=== PATIENT | female | born 1995 ===

== ENCOUNTER 2024-04-08 21:08 | Inpatient (IN) | payer MEDICAID, OTHER ==
[~2024-04-08] VITALS: Ht 66 cm; Wt 87.5 kg
[2024-04-08 21:42] LABS: COVID AG,FIA SOURCE NASAL SWAB
[2024-04-08 21:51] LABS: BASOPHILS % (AUTO) 0.2 % (0.0-2.0); EOSINOPHILS % (AUTO) 0.3 % (1.0-6.0); HEMATOCRIT 42.7 % (36-46); HEMOGLOBIN 14.1 g/dL (12.0-16.0); LYMPHOCYTES # (AUTO) 1.4 K/uL (1.0-4.8); MEAN CORPUSCULAR HEMOGLOBIN 32.4 pg (26.0-34.0); MEAN CORPUSCULAR HGB CONC 33.1 G/dL (31.0-37.0); MEAN CORPUSCULAR VOLUME 98 fL (80-100); MONOCYTES # (AUTO) 0.6 K/uL (0.1-1.0); MONOCYTES % (AUTO) 5.3 % (2.0-9.0); NEUTROPHILS % (AUTO) 81.2 % (40.0-70.0); PLATELET COUNT (AUTO) 276 K/uL (150-450); RED BLOOD CELL COUNT(AUTO) 4.36 MIL/uL (4.00-5.20); RED CELL DISTRIBUTION WIDTH 15.3 % (11.5-14.5); WHITE BLOOD COUNT (AUTO) 11.1 K/uL (4.5-11.0)
[2024-04-08 21:55] LABS: ALCOHOL, BLOOD (SERUM) 224 mg/dL (0-10); ANION GAP 16 mmol/L (8-16); CALCIUM, TOTAL 8.6 mg/dL (8.8-10.5); CARBON DIOXIDE 23 mmol/L (22-29); CHLORIDE 105 mmol/L (98-107); CREATININE 0.76 mg/dL (0.60-1.30); GLOMERULAR FILTR. RATE CALC > 60 mL/min (>60); GLUCOSE,RANDOM 114 mg/dL (70-110); POTASSIUM 3.1 mmol/L (3.5-5.1); SODIUM SERUM 144 mmol/L (136-145); UREA NITROGEN, BLOOD 4 mg/dL (7-18)
[2024-04-08 22:01] LABS: SARS-COV2 (COVID) ANTIGEN,FIA Negative (Negative)
[2024-04-08 22:50] LABS: PH,URINE DRUG SCREEN 6.5 (5.0-8.0)
[2024-04-08 22:57] LABS: ALCOHOL, URINE DRUG SCREEN POSITIVE (NEGATIVE); AMPHET/METH SCREEN,URINE NEGATIVE (NEGATIVE); BARBITURATE SCREEN, URINE NEGATIVE (NEGATIVE); BENZODIAZEPINES SCREEN,URINE NEGATIVE (NEGATIVE); CANNABINOID SCREEN,URINE POSITIVE (NEGATIVE); COCAINE SCREEN,URINE NEGATIVE (NEGATIVE); METHADONE SCREEN, URINE NEGATIVE (NEGATIVE); OPIATE SCREEN,URINE NEGATIVE (NEGATIVE); PHENCYCLIDINE SCREEN,URINE NEGATIVE (NEGATIVE)
[2024-04-09 01:30] VITALS: O2SAT 99
[2024-04-09] MEDS: ACETAMINOPHEN 325 MG TABLET PO ONE (01:43)
[2024-04-09] MEDS: POTASSIUM CHLORIDE 20 MEQ ER TABLET PO ONE (02:14)
[2024-04-09] MEDS ORDERED: LORazepam 2 MG TABLET PO PRN ×2 (03:15→09:45)
[2024-04-09] MEDS ORDERED: ZOLPIDEM TARTRATE 10 MG TABLET PO PRN (03:15)
[2024-04-09] MEDS ORDERED: HALOPERIDOL 5 MG TABLET PO PRN (03:15)
[2024-04-09 05:27] VITALS: BP 130/90; PULSE 96; RESP 18; TEMP 98.3
[2024-04-09 08:08] VITALS: RESP 16
[2024-04-09] MEDS ORDERED: PROMETHAZINE HCL 25 MG TABLET PO PRN (09:30)
[2024-04-09] MEDS ORDERED: MAGNESIUM HYDROXIDE SUSPENSION 30 ML UDCUP PO PRN ×2 (09:30→09:45)
[2024-04-09] MEDS ORDERED: ACETAMINOPHEN 325 MG TABLET PO PRN ×2 (09:30→09:45)
[2024-04-09] MEDS ORDERED: LOPERAMIDE HCL 2 MG CAPSULE PO PRN ×2 (09:30→09:45)
[2024-04-09] MEDS ORDERED: HydrOXYzine PAMOATE 50 MG CAPSULE PO PRN (09:30)
[2024-04-09] MEDS ORDERED: GuaiFENesin/D-METHORPHAN [SUGAR-FREE] 200-20MG/10 ML SYRUP UDCUP PO PRN (09:30)
[2024-04-09] MEDS ORDERED: TUBERCULIN, PURIFIED PROTEIN DERIVATIVE 5 TU/0.1 ML SYRINGE ID ONE (09:30)
[2024-04-09] MEDS ORDERED: OLANZapine 5 MG RAPDIS TABLET PO PRN (09:30)
[2024-04-09] MEDS ORDERED: MAG HYDROX/ALUMINUM HYD/SIMETH ES 30 ML SUSPENSION UDCUP PO PRN ×2 (09:30→09:45)
[2024-04-09] MEDS ORDERED: OMEPRAZOLE 20 MG CAPSULE PO PRN (09:45)
[2024-04-09] MEDS ORDERED: BENZOCAINE/MENTHOL LOZENGE PO PRN (09:45)
[2024-04-09] MEDS ORDERED: PETROLATUM,WHITE 28 GM JELLY TP PRN (09:45)
[2024-04-09] MEDS ORDERED: ONDANSETRON 4 MG TABLET PO PRN (09:45)
[2024-04-09] MEDS ORDERED: BACITRACIN 28 GM OINTMENT TP PRN (09:45)
[2024-04-09] MEDS ORDERED: DOCUSATE SODIUM 100 MG CAPSULE PO PRN (09:45)
[2024-04-09] MEDS ORDERED: IBUPROFEN 600 MG TABLET PO PRN (09:45)
[2024-04-09] MEDS ORDERED: ALBUTEROL SULFATE HFA 90 MCG/PUFF 8 GM INHALER IH PRN (09:45)
[2024-04-09] MEDS ORDERED: CloNIDine HCL 0.1 MG TABLET PO PRN (09:45)
[2024-04-09 10:11] LABS: FREE T4 (FREE THYROXINE) 1.21 ng/dL (0.76-1.46); THYROID STIMULATING HORMONE 1.49 uIU/mL (0.36-3.74)
[2024-04-09 11:33] VITALS: BP 133/85; PULSE 94; RESP 16; TEMP 97.2; O2SAT 97
[2024-04-09] MEDS ORDERED: FLUO-418 PO (16:06)
[2024-04-09] MEDS ORDERED: MELA5TAB40 PO (16:06)
[2024-04-09] MEDS ORDERED: NALT50TA33 PO (16:06)
[2024-04-09] MEDS ORDERED: OMEG100033 PO (16:06)
[2024-04-09] MEDS: THIAMINE 100 MG TABLET PO SCH (16:11)
[2024-04-09 17:58] VITALS: BP 117/81; PULSE 96; RESP 16; TEMP 97.4; O2SAT 96
[2024-04-09] MEDS: MELATONIN 5 MG TABLET PO SCH (20:56)
[2024-04-09] MEDS ORDERED: OLANZapine 5 MG RAPDIS TABLET PO SCH (21:00)
[2024-04-09 22:00] VITALS: BP 148/85; PULSE 84; RESP 18; TEMP 97.6; O2SAT 98
[2024-04-10 06:37] VITALS: BP 136/99; PULSE 87; RESP 18; TEMP 97.6; O2SAT 99
[2024-04-10 06:43] VITALS: BP 136/84; PULSE 87; RESP 18; TEMP 97.3; O2SAT 99
[2024-04-10] MEDS ORDERED: LORazepam 2 MG TABLET PO PRN (07:00)
[2024-04-10 08:17] VITALS: BP 142/87; PULSE 85; RESP 16; TEMP 97.8; O2SAT 96
[2024-04-10] MEDS: NALTREXONE HCL 50 MG TABLET PO SCH (08:46)
[2024-04-10] MEDS: FOLIC ACID 1 MG TABLET PO SCH (08:46)
[2024-04-10] MEDS: MULTIVITAMINS WITH MINERALS, THERAPEUTIC TABLET PO SCH (08:46)
[2024-04-10] MEDS: OMEGA-3/DHA/EPA/FISH OIL 1,000 MG CAPSULE PO SCH (08:47)
[2024-04-10] MEDS ORDERED: LORazepam 2 MG TABLET PO SCH (09:00)
[2024-04-10 09:52] LABS: HEMOGLOBIN A1C 5.6 % (3.8-5.6)
[2024-04-10 10:09] LABS: ANION GAP 16 mmol/L (8-16); CALCIUM, TOTAL 9.3 mg/dL (8.8-10.5); CARBON DIOXIDE 23 mmol/L (22-29); CHLORIDE 99 mmol/L (98-107); CREATININE 0.63 mg/dL (0.60-1.30); GLOMERULAR FILTR. RATE CALC > 60 mL/min (>60); GLUCOSE,RANDOM 107 mg/dL (70-110); HDL CHOLESTEROL 101 mg/dL (40-60); SODIUM SERUM 138 mmol/L (136-145); UREA NITROGEN, BLOOD 5 mg/dL (7-18)
[2024-04-10 10:36] LABS: CHOLESTEROL 201 mg/dL (131-200); FREE T4 (FREE THYROXINE) 1.33 ng/dL (0.76-1.46); LDL CHOL (CALC.) 78 mg/dL (0-130); THYROID STIMULATING HORMONE 2.45 uIU/mL (0.36-3.74); TRIGLYCERIDES 108 mg/dL (15-150)
[2024-04-12] MEDS ORDERED: LORazepam 1 MG TABLET PO PRN (07:00)
[2024-04-12] MEDS ORDERED: LORazepam 1 MG TABLET PO SCH (09:00)
[2024-04-13] MEDS ORDERED: LORazepam 1 MG TABLET PO PRN (07:00)
== END 2024-04-10 09:37 | disposition home or self-care (01) | DRG 753 ==
LOC: EMS 21:08 → B3A 04-09 03:06
PROVIDERS: ADMIT Psychiatry & Neurology Psychiatry; ATTEND Psychiatry & Neurology Psychiatry
DX: F31.30 Bipolar disorder, current episode depressed, mild or moderate severity, unspecified (principal); F10.10 Alcohol abuse, uncomplicated; F12.10 Cannabis abuse, uncomplicated; F17.200 Nicotine dependence, unspecified, uncomplicated; Z20.822 Contact with and (suspected) exposure to COVID-19; S00.83XA Contusion of other part of head, initial encounter; F41.9 Anxiety disorder, unspecified; G47.00 Insomnia, unspecified; K59.00 Constipation, unspecified; Y04.0XXA Assault by unarmed brawl or fight, initial encounter; Y92.89 Other specified places as the place of occurrence of the external cause; Y93.89 Activity, other specified; Y99.8 Other external cause status
CPT/HCPCS: 80048; 80061; 80307; 83036; 84439; 84443; 84703; 85025; 86592; 99285; G0480